=== PATIENT | female | born 1995 | race Caucasian/White ===

== ENCOUNTER 2025-01-16 11:06 | Emergency (ER) | payer MEDICAID ==
[~2025-01-16] VITALS: Ht 167.6 cm; Wt 132.0 kg
[2025-01-16 11:33] VITALS: BP 120/72; TEMP 36.9; O2SAT 100
[2025-01-16 11:35] VITALS: PULSE 91; RESP 18; O2SAT 98
== END 2025-01-16 15:34 | disposition left against medical advice (07) ==
LOC: ER 11:06
DX: R06.02 Shortness of breath (principal); Z53.21 Procedure and treatment not carried out due to patient leaving prior to being seen by health care provider